=== PATIENT | female | born 2000 | race Two or more races ===

== ENCOUNTER 2021-08-20 23:51 | Emergency (ER) | payer OTHER ==
[~2021-08-20] VITALS: Ht 152.4 cm; Wt 49.9 kg
[2021-08-20] MEDS ORDERED: PRENA1 CHEW TA1.4 MG PO (23:59)
[2021-08-21] MEDS ORDERED: DUI500 PO (04:26)
[2021-08-21] MEDS ORDERED: PREPARATION H R28 GM RECTAL (04:26)
== END 2021-08-21 04:42 | disposition home or self-care (01) ==
LOC: ER 23:51
DX: O23.42 Unspecified infection of urinary tract in pregnancy, second trimester (principal); N39.0 Urinary tract infection, site not specified; Z37.0 Single live birth; O22.42 Hemorrhoids in pregnancy, second trimester; Z3A.19 19 weeks gestation of pregnancy